=== PATIENT | female | born 1955 | race Caucasian/White ===

== ENCOUNTER 2021-07-24 11:50 | Inpatient (IN) ==
[2021-07-24] MEDS ORDERED: Ondansetron 4 MG/2 ML VIAL IVP ONE (12:14)
[2021-07-24] MEDS ORDERED: 0.9 % Sodium Chloride 1,000 ML IVC ONE (12:14)
[2021-07-24] MEDS: Ketorolac 30 MG/ML VIAL IVP ONE ×2 (13:10→15:03)
[2021-07-24 13:27] LABS: Basophils # 0.1 K/mcL (0.0-0.2); Basophils % 0.7 %; Eosinophils # 0.2 K/mcL (0.0-0.6); Eosinophils % 2.3 %; Hematocrit 41.5 % (35.3-44.9); Hemoglobin 13.1 g/dL (11.5-15.4); Immature Granulocytes % 0.2 % (0-4); Lymphocytes % 24.5 %; Mean Corpuscular HGB Conc 31.6 g/dL (31.6-35.5); Mean Corpuscular Hemoglobin 29.7 pg (28.0-33.3); Mean Corpuscular Volume 94.1 fL (83.0-100.0); Mean Platelet Volume 9.1 fL (9.4-12.4); Monocytes # 0.7 K/mcL (0.0-1.3); Monocytes % 8.5 %; Neutrophils # 5.2 K/mcL (1.6-8.9); Platelet Count 414 K/mcL (140-400); Red Blood Count 4.41 M/mcL (3.82-4.97); Red Cell Distribution Width 13.9 % (11.5-14.5); Segmented Neutrophils % 63.8 %; White Blood Count 8.2 K/mcL (4.3-11.1)
[2021-07-24 13:42] LABS: Bilirubin,Urine Negative (Negative); Blood,Urine Large (Negative); Clarity,Urine Clear (Clear); Color,Urine Light-Red (Yellow); Glucose,Urine (UA) Normal (Normal); Ketones,Urine Negative (Negative); Leukocyte Esterase,Urine Negative (Negative); Nitrite,Urine Negative (Negative); PH,Urine 7.5 pH Units (5.0-8.0); Protein,Urine 30 mg/dL (Neg-Trace); Specific Gravity,Urine 1.011 (1.010-1.025); Urobilinogen,Urine Normal (Normal)
[2021-07-24 13:43] LABS: Bacteria,Urine Present per hpf (None-Few); RBC,Urine TNTC per hpf (0-3); Squamous Epithelial Cell,Urine Present per hpf (None-Few); WBC,Urine Present per hpf (0-3)
[2021-07-24 13:44] LABS: Amorphous Sediment,Urine Present per hpf (None-Few)
[2021-07-24 13:47] LABS: Alanine Aminotransferase 17 Units/L (7-52); Albumin 4.7 g/dL (3.5-5.7); Albumin/Globulin Ratio 1.7 (1.1-2.2); Alkaline Phosphatase 95 Units/L (34-104); Amylase 37 Units/L (29-103); Aspartate Amino Transferase 16 Units/L (13-39); BUN/Creatinine Ratio 10 (6-26); Bilirubin,Direct 0.1 mg/dL (0.0-0.2); Bilirubin,Indirect 0.3 mg/dL (0.0-1.0); Bilirubin,Total 0.4 mg/dL (0.3-1.0); Blood Urea Nitrogen 8 mg/dL (8-23); Carbon Dioxide 25 mEq/L (23-29); Chloride 108 mEq/L (98-107); Globulin 2.8 g/dL (2.4-3.5); Glucose 85 mg/dL (70-105); Lipase 19 Units/L (11-82); Osmolality,Calculated 292 (280-300); Potassium 3.3 mEq/L (3.5-5.1); Sodium 142 mEq/L (136-145); Total Protein 7.5 g/dL (6.4-8.9); eGFR For African Americans > 60 (> 60); eGFR For Non-African Americans > 60 (> 60)
[2021-07-24] MEDS ORDERED: Acetaminophen 325 MG TABLET PO PRN (14:20)
[2021-07-24] MEDS ORDERED: Melatonin 3 MG TABLET PO PRN ×2 (14:20→17:33)
[2021-07-24] MEDS ORDERED: Naloxone 0.4 MG/ML INJ IVP PRN ×2 (14:20→15:25)
[2021-07-24] MEDS ORDERED: Ondansetron 4 MG/2 ML VIAL IVP PRN ×3 (14:20→17:33)
[2021-07-24] MEDS ORDERED: Ketorolac 30 MG/ML VIAL IVP PRN ×2 (14:20→17:33)
[2021-07-24] MEDS ORDERED: Ringers Solution, Lactated 1,000 ML IVC SCH (14:30)
[2021-07-24] MEDS ORDERED: Acetaminophen IV 1,000 MG/100 ML BAG IVPB ONE ×2 (14:34→14:39)
[2021-07-24] MEDS ORDERED: ceFAZolin 2,000 MG in Water for inj. (sterile) 20 ML IVP ONE (14:46)
[2021-07-24] MEDS ORDERED: *HR* FentaNYL (PF) 100 MCG/2 ML VIAL ONE (15:22)
[2021-07-24] MEDS ORDERED: *HR* Midazolam HCl 2 MG/2 ML VIAL ONE (15:22)
[2021-07-24] MEDS ORDERED: *HR* Propofol 200 MG/20 ML VIAL IVP ONE (15:23)
[2021-07-24] MEDS ORDERED: Nitroglycerin 0.4 MG TAB.SUBL SL PRN (15:25)
[2021-07-24] MEDS ORDERED: Albuterol 2.5 MG/3 ML NEBULIZER IH PRN (15:25)
[2021-07-24] MEDS ORDERED: Lidocaine -MPF 2% 5 ML VIAL ONE (15:25)
[2021-07-24] MEDS ORDERED: Ondansetron 4 MG/2 ML VIAL ONE (15:25)
[2021-07-24] MEDS ORDERED: Ipratropium Neb 0.5 MG NEBULIZER IH PRN (15:25)
[2021-07-24] MEDS ORDERED: EPHEDrine 50 MG/ML VIAL ONE (16:05)
[2021-07-24] MEDS ORDERED: *HR* Succinylcholine 200 MG/10 ML VIAL IVP ONE (16:26)
[2021-07-24] MEDS: *HR* FentaNYL (PF) 100 MCG/2 ML VIAL IVP PRN ×2 (16:44→16:54)
[2021-07-24] MEDS: Ringers Solution, Lactated 1,000 ML IVC SCH (17:48)
[2021-07-25 00:57] LABS: Hematocrit 35.5 % (35.3-44.9); Mean Corpuscular HGB Conc 32.4 g/dL (31.6-35.5); Mean Corpuscular Volume 92.7 fL (83.0-100.0); Mean Platelet Volume 9.1 fL (9.4-12.4); Platelet Count 377 K/mcL (140-400); Red Blood Count 3.83 M/mcL (3.82-4.97)
[2021-07-25 01:05] LABS: Hemoglobin 11.5 g/dL (11.5-15.4)
[2021-07-25 01:18] LABS: BUN/Creatinine Ratio 10 (6-26); Blood Urea Nitrogen 8 mg/dL (8-23); Calcium 8.9 mg/dL (8.6-10.3); Carbon Dioxide 24 mEq/L (23-29); Chloride 110 mEq/L (98-107); Glucose 166 mg/dL (70-105); Magnesium 1.7 mg/dL (1.6-2.6); Osmolality,Calculated 294 (280-300); Potassium 3.4 mEq/L (3.5-5.1); Sodium 141 mEq/L (136-145); eGFR For African Americans > 60 (> 60); eGFR For Non-African Americans > 60 (> 60)
[2021-07-25] MEDS: Ringers Solution, Lactated 1,000 ML IVC SCH (05:25)
[2021-07-25] MEDS ORDERED: *HR* Enoxaparin 40 MG/0.4 ML SYRINGE SQ SCH ×2 (07:00)
[2021-07-25 07:33] VITALS: BP 106/65; PULSE 73; TEMP 97.3; O2SAT 99
== END 2021-07-25 12:10 | disposition home or self-care (01) | DRG 661 ==
LOC: EMEROOARM 11:50 → 3ANU 11:50 → SUATTDRO 15:55
PROVIDERS: ADMIT Internal Medicine; ATTEND Internal Medicine